=== PATIENT | female | born 2000 | race African-American/Black ===

== ENCOUNTER 2023-06-22 03:37 | Emergency (ER) | payer OTHER ==
[~2023-06-22] VITALS: Ht 167.6 cm; Wt 57.6 kg
[2023-06-22] MEDS ORDERED: predniSONE 20 MG TABLET ONE (03:46)
[2023-06-22] MEDS ORDERED: ALBUTEROL FS 2.5 MG/3 ML VIAL.NEB ONE ×2 (03:48→05:17)
[2023-06-22] MEDS ORDERED: IPRATROPIUM NEB FS 0.5 MG/2.5 ML AMPUL.NEB ONE (03:48)
[2023-06-22 03:50] VITALS: O2SAT 98
[2023-06-22] MEDS ORDERED: IPRATROPIUM NEB FS 0.5 MG/2.5 ML AMPUL.NEB NEB ONE (04:00)
[2023-06-22] MEDS ORDERED: ALBUTEROL FS 2.5 MG/3 ML VIAL.NEB NEB ONE ×2 (04:00→05:30)
[2023-06-22] MEDS ORDERED: predniSONE 20 MG TABLET PO ONE (04:00)
[2023-06-22 04:50] VITALS: O2SAT 100
[2023-06-22 05:20] VITALS: O2SAT 98
[2023-06-22] MEDS ORDERED: ALBU18HF2 INH (05:20)
[2023-06-22] MEDS ORDERED: PRED20TA PO (05:20)
[2023-06-22] MEDS ORDERED: ALBU2.5V13 NEB (05:20)
[2023-06-22 05:35] VITALS: O2SAT 100
[2023-06-22 06:10] VITALS: BP 129/76; O2SAT 100
== END 2023-06-22 06:16 | disposition home or self-care (01) ==
LOC: ER 03:39
DX: J45.901 Unspecified asthma with (acute) exacerbation (principal); Z79.899 Other long term (current) drug therapy
CPT/HCPCS: 99285; 71045; 94799; 94644; 94645; J7512